=== PATIENT | male | born 1980 | race Caucasian/White ===

== ENCOUNTER 2021-06-27 13:14 | Emergency (ER) | payer OTHER ==
[2021-06-27] MEDS: Ketorolac 30 MG/ML SDV IM ONE (14:22)
== END 2021-06-27 15:14 | disposition home or self-care (01) ==
LOC: FB.ED 13:14
DX: T23.211A Burn of second degree of right thumb (nail), initial encounter (principal); Z88.5 Allergy status to narcotic agent; X14.1XXA Other contact with hot air and other hot gases, initial encounter
CPT/HCPCS: 96372; 99283; J1885